=== PATIENT | female | born 1965 | race Caucasian/White ===

== ENCOUNTER 2016-04-12 05:34 | Emergency (ER) | payer MEDICAID ==
[2016-04-12] MEDS ORDERED: ASPIRIN 81 MG CHEW TAB ONE (06:10)
[2016-04-12] MEDS ORDERED: SODIUM CHLORIDE 0.9% 1,000 ML ONE (07:30)
[2016-04-12] MEDS ORDERED: ONDANSETRON 4 MG VIAL ONE (07:30)
[2016-04-12] MEDS ORDERED: METOCLOPRAMIDE 10 MG/2 ML VIAL ONE ×2 (07:32→07:41)
[2016-04-12] MEDS ORDERED: DIPHENHYDRAMINE 50 MG/ML VIAL ONE (07:32)
[2016-04-12] MEDS ORDERED: KETOROLAC 30 MG/ML VIAL ONE ×2 (07:32→07:41)
[2016-04-12] MEDS ORDERED: SODIUM CHLORIDE 0.9% 0 ML IV ONE (07:33)
[2016-04-12] MEDS ORDERED: SODIUM CHLORIDE 0.9% 50 ML IV ONE (07:41)
[2016-04-12] MEDS ORDERED: ACETAMIN/BUTALB/CAFF PO ONE (10:05)
[2016-04-12] MEDS ORDERED: ACETAMIN/BUTALB/CAFF ONE (10:17)
== END 2016-04-12 12:40 | disposition home or self-care (01) ==
LOC: ER 05:34
DX: R07.89 Other chest pain (principal); R51 Headache; Z79.899 Other long term (current) drug therapy; I10 Essential (primary) hypertension; E03.9 Hypothyroidism, unspecified; E78.00 Pure hypercholesterolemia, unspecified
CPT/HCPCS: 36415; 71010; 80053; 82550; 83735; 84484; 85025; 85379; 85610; 85730; 93005; 96361; 96374; 96375